=== PATIENT | male | born 1970 | race Caucasian/White ===

== ENCOUNTER 2017-05-28 09:23 | Emergency (ER) | payer OTHER ==
[~2017-05-28] VITALS: Ht 190.5 cm; Wt 95.2 kg
[2017-05-28] MEDS ORDERED: IBUPROFEN200 M1 PO (09:42)
[2017-05-28] MEDS ORDERED: VENTOLIN HFA18 GM INH (11:10)
== END 2017-05-28 11:28 | disposition home or self-care (01) ==
LOC: ED 09:23
DX: J44.9 Chronic obstructive pulmonary disease, unspecified (principal); F17.210 Nicotine dependence, cigarettes, uncomplicated
CPT/HCPCS: 71046; 80053; 83690; 85025; 94640; 99284; G0480

== ENCOUNTER → 2020-05-12 | Emergency (ER) | payer BC ==
[~2020-05-12] VITALS: Ht 190.5 cm; Wt 87.5 kg
[~2020-05-12] MED LIST: IBUPROFEN200 M1 PO; VENTOLIN HFA18 GM INH
--- NOTE | 2020-05-13 15:40 | EKG ---
[facility] [address] [facility] [place], [place] [address] Signed Sinus tachycardia Low voltage QRS Borderline ECG No previous ECGs available Confirmed by NICKOLAS BAKER DO ([id number]) on 05/13/2020 3:39:51 PM Electronically Signed By: NICKOLAS BAKER DO 05/13/20 1540 PATIENT NAME: NETTE NICHOLAS Electrocardiogram DATE OF : 66 PHYSICIAN: NICKOLAS BAKER DO REPORT #: [id number] REPORT IS CONFIDENTIAL AND NOT TO BE RELEASED WITHOUT AUTHORIZATION
== END ==
LOC: ED 17:19
DX: A41.9 Sepsis, unspecified organism (principal); R91.1 Solitary pulmonary nodule; E87.1 Hypo-osmolality and hyponatremia; D72.829 Elevated white blood cell count, unspecified; J43.9 Emphysema, unspecified; F17.200 Nicotine dependence, unspecified, uncomplicated; Z20.822 Contact with and (suspected) exposure to COVID-19
CPT/HCPCS: 71045; 71260; 74177; 80053; 81001; 83605; 85025; 93005; 93010; 99285-25; C9803; J0295; Q9967; U0003

== ENCOUNTER 2021-07-19 07:34 | Emergency (ER) | payer OTHER ==
[~2021-07-19] VITALS: Ht 190.5 cm; Wt 104.3 kg
[2021-07-19] MEDS ORDERED: INCRUSE ELLI62.5 MCG IH (07:44)
== END 2021-07-19 09:55 | disposition home or self-care (01) ==
LOC: ED 07:34
DX: M54.6 Pain in thoracic spine (principal); R53.1 Weakness; J43.9 Emphysema, unspecified; F17.200 Nicotine dependence, unspecified, uncomplicated; Z79.51 Long term (current) use of inhaled steroids; Z20.822 Contact with and (suspected) exposure to COVID-19
CPT/HCPCS: 36415; 71046; 74177; 80053; 85025; 87502; 99285-25; C9803; Q9967; U0003

== ENCOUNTER 2022-03-27 05:35 | Day surgery (SDC) | payer OTHER ==
[~2022-03-27] VITALS: Ht 190.5 cm; Wt 109.5 kg
[~2022-03-27 05:35] MED LIST changes: +INCRUSE ELLI62.5 MCG IH; +PEPCID20 MG PO
--- NOTE | 2022-03-27 08:55 | NUR ---
03/27/22 0855 Sheets,Nupur 0833 PT ARRIVED TO PACU ON 10L VIA MASK WITH ORAL AIRWAY IN PLACE. PT LAYING ON SIDE. HOB INCREASED AND JAW THUSRT USED TO MAINTAIN AIRWAY. PT NONAROUSABLE TO PAINFUL STIMULI. 0836 O2 DECREASED TO 6L. 0837 PT STARTS COUGHING AND RED/BROWN DRAINAGE NOTED, SUCTION USED. ORAL AIRWAY REMOVED AND PT EYES REMAIN CLOSED AND PT DOES NOT FOLLOW COMMANDS. PT ROLLED MORE ON HIS SIDE. 0839 PT EYES OPEN AND PT REORIENTED TO PACU. PT CONTINUES COUGHING AND SUCTION USED. RESP EVEN AND UNLABORED. PT PASSIING GAS/AIR. 0840 PT SITTING UP IN BED AND REQUESTING WATER. 0848 MD AT BEDSIDE TALKING TO PT, PT SIPPING WAER AND DENIES CONCERNS.
--- NOTE | 2022-03-27 10:56 | OR ---
[facility] [address] [place], [place] [address] Signed DATE OF OPERATION: 03/27/2022 SURGEON: Babak Martinez MD PREOPERATIVE DIAGNOSES: 1. Gastroesophageal reflux disease. 2. Mother with colon cancer in her late 80s. 3. Father with colon cancer age 77. 4. Personal history of colonic polyps in 2012 at age 41. 5. Diverticulosis. 6. External hemorrhoids. POSTOPERATIVE DIAGNOSES: 1. Mild gastroduodenitis. 2. Hiatal hernia (39-35 cm). 3. GE junction at 35 cm. 4. 7 mm polyp at 7 cm in the rectum. 5. 5 mm polyp at 50 cm in left colon. 6. 7 mm polyp at 45 cm in left colon. 7. Internal hemorrhoids. 8. Minimal external hemorrhoids. 9. Indurated prostate gland. PROCEDURES: 1. EGD with CLOtest and biopsies of the pyloric bulb, antrum and GE junction. 2. Colonoscopy with hot biopsy. ESTIMATED BLOOD LOSS: None. INDICATIONS: Nette is a 51-year-old gentleman, asked to see me for both upper and lower endoscopy. He has developed acid reflux and it has been really bother him while lying supine at night. He was going through large amounts of Tums. He started taking Pepcid before he goes to bed and he said that has really helped a lot. He said the acid is no longer coming up in his mouth. In addition, he has a personal history of colonic polyps. He also has diverticulosis and external hemorrhoids. We know his mom and dad both had colon cancer. I helped him with his initial colonoscopy at age 41 back in 2011. 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 He has quit smoking cigarettes and drinking beer, although, he has continued to use marijuana on a nightly Electronically Signed By: BABAK MARTINEZ MD 03/27/22 1056 PATIENT NAME: NETTE NICHOLAS OPERATIVE REPORT DATE OF : 66 REPORT #: [id number] PHYSICIAN: BABAK MARTINEZ MD PCP: ZENAIDA HUERTA MD REPORT IS CONFIDENTIAL AND NOT TO BE RELEASED WITHOUT AUTHORIZATION [facility] [address] [place], [place] [address] Signed basis to help him sleep. In the office, I gave him a pamphlet on upper and lower endoscopy. We reviewed the nature of the two tests. There is risk including, but not limited to gas bloating, crampy abdominal pain, bleeding, perforation requiring surgery, and missed diagnosis. Given his past medical history, he is in need of monitored anesthesia care with propofol infusion. He had expressed understanding and wished to proceed. PROCEDURE NOTE: Didier was taken into our endoscopy suite and placed in a supine semi-recumbent position. A bite block was utilized . He was given monitored anesthesia care with propofol per our nurse general road production manager. The adult gastroscope was introduced and advanced under direct visualization of the camera into the third portion the duodenum. As it is common with marijuana smokers, he had lots of phlegm and saliva throughout the case and required constant suctioning. He had just a little irritation in his pyloric bulb and his stomach. We went ahead and took biopsies from the pyloric bulb in the antrum for pathologic review. In addition, biopsy came out of the antrum for CLOtest. Upon retroflexion of the scope, we can see he has moderate-sized hiatal hernia. It measured from 39 back to 35 cm. He has a little bit of disruption along the Z-line. There was no Lerner's mucosa. There were no gastric or esophageal varices. There was no stricture. We went ahead and took a biopsy along the edge of the GE junction. There was no distal esophagitis. The middle and upper esophagus were unremarkable. After this, the gas was suctioned out and the gastroscope removed. Didier tolerated the procedure quite well except for all the phlegm. Didier was rotated into the left lateral decubitus position. He was maintained on IV sedation with the propofol. A digital rectal exam was performed. He has very small external hemorrhoids. He has good sphincter tone. He has a fairly prominent prostate gland given his age. There were no masses. The adult colonoscope was introduced and we took out the polyp in his mid rectum with hot biopsy forceps. It took us quite some time to get around his rectosigmoid junction. We had to rotate him into the supine position and used abdominal compression and eventually got through that area and up to the sigmoid colon quite nicely. We went around into the cecum. His prep was quite excellent. We could easily see the appendiceal orifice and the ileocecal valve. The scope was then slowly withdrawn. We took pictures throughout for photodocumentation. We placed him back into the left lateral decubitus position. He had the two polyps in the left colon removed with a hot biopsy forceps. The polyp at 45 cm is in between two folds and it was a bit challenging. He does have left and sigmoid diverticula. They are moderate in size, moderate in number, and scattered about. Again, we came back through his tortuous rectosigmoid junction. We retroflexed the scope in his rectum. He does have moderate internal hemorrhoid columns. After this, the gas was suctioned out and the colonoscope removed. Didier tolerated the procedure quite well. Electronically Signed By: BABAK MARTINEZ MD 03/27/22 1056 PATIENT NAME: NETTE NICHOLAS OPERATIVE REPORT DATE OF : 66 REPORT #: [id number] PHYSICIAN: BABAK MARTINEZ MD PCP: ZENAIDA HUERTA MD REPORT IS CONFIDENTIAL AND NOT TO BE RELEASED WITHOUT AUTHORIZATION [facility] [address] [place], [place] [address] Signed RECOMMENDATIONS: Didier can follow up my office in 7 to 14 days to review his results. I suspect he will be on the 5-year rotation. He should be encouraged to stop smoking marijuana. MD GURWINDER Hawthorne/POLAL /[id number] cc: MD Babak Brannon MD Copies: BABAK MARTINEZ MD ~ Electronically Signed By: BABAK MARTINEZ MD 03/27/22 1056 PATIENT NAME: NETTE NICHOLAS OPERATIVE REPORT DATE OF : 66 REPORT #: [id number] PHYSICIAN: BABAK MARTINEZ MD PCP: ZENAIDA HUERTA MD REPORT IS CONFIDENTIAL AND NOT TO BE RELEASED WITHOUT AUTHORIZATION
--- NOTE | 2022-03-31 16:03 | PATH ---
[facility] [address] [place], [place] [address] Signed SPECIMEN(S): A PYLORIC BULB BIOPSY SPECIMEN(S): B ANTRUM BIOPSY SPECIMEN(S): C GE JUNCTION BIOPSY SPECIMEN(S): D RECTAL POLYPS AT 7CM SPECIMEN(S): E DESCENDING/LEFT COLON POLYPS AT 50CM SPECIMEN(S): F DESCENDING/LEFT COLON POLYPS AT 45CM SPECIMEN SOURCE: A. PYLORIC BULB BIOPSY B. ANTRUM BIOPSY C. GE JUNCTION BIOPSY D. RECTAL POLYPS AT 7CM E. DESCENDING/LEFT COLON POLYPS AT 50CM F. DESCENDING/LEFT COLON POLYPS AT 45CM CLINICAL HISTORY: History of polyps, acid reflux, family history of colon cancer. Postop: Gastroduodenitis, hiatal hernia. Lower postop: Internal hemorrhoids, polyps, diverticulosis. FINAL PATHOLOGIC DIAGNOSIS: A. Pyloric bulb, biopsies: - Reactive small intestinal mucosa, negative for significantly increased intraepithelial lymphocytosis and villous blunting. B. Antrum, biopsies: - Fragments of benign antral type gastric mucosa. - Negative for intestinal metaplasia. - Negative for Helicobacter pylori organisms on routine stain. C. GE junction, biopsies: - Fragments of reactive squamocolumnar mucosa. - Negative for intestinal metaplasia and dysplasia. D. Rectal polyps at 7 cm, polypectomy: - Fragments of tubular adenoma with abundant cautery artifact. - Negative for high-grade dysplasia and malignancy. E. Descending/left colon polyp at 50 cm, polypectomy: - Fragments of tubular adenoma. - Negative for high-grade dysplasia and malignancy. F. Descending/left colon polyp at 45 cm, polypectomy: - Fragments of tubular adenoma. - Negative for high-grade dysplasia and malignancy. DF:cml:[id number] PATIENT NAME: NETTE CORTEZ PATHOLOGY DATE OF : 66 REPORT #: [id number] PHYSICIAN: NAVA PATHOLOGY PCP: ZENAIDA HUERTA MD REPORT IS CONFIDENTIAL AND NOT TO BE RELEASED WITHOUT AUTHORIZATION [facility] [address] [place], [place] [address] Signed MICROSCOPIC EXAMINATION: Histologic sections of all submitted blocks are examined by light microscopy. These findings, together with the gross examination, support the pathologic diagnosis. GROSS DESCRIPTION: A. The specimen, labeled and designated "Dana, pyloric bulb biopsy," is received in formalin and consists of one carrasco soft tissue fragment, 0.2 cm. Entirely submitted in (A1). B. The specimen, labeled and designated "Cortez, antrum biopsy," is received in formalin and consists of one carrasco soft tissue fragment, 0.8 cm. Entirely submitted in (B1). C. The specimen, labeled and designated "Cortez, GE junction biopsy," is received in formalin and consists of one carrasco soft tissue fragment, 0.2 cm. Entirely submitted in (C1). D. The specimen, labeled and designated "Cortez, rectal polyps at 7 cm," is received in formalin and consists of two carrasco soft tissue fragments, ranging from 0.3-0.4 cm. Entirely submitted in (D1). E. The specimen, labeled and designated "Cortez, descending/left colon polyp at 50 cm," is received in formalin and consists of two carrasco soft tissue fragments, ranging from 0.3-0.4 cm. Entirely submitted in (E1). F. The specimen, labeled and designated "Cortez, descending/left colon polyp at 45 cm," is received in formalin and consists of six carrasco soft tissue fragments, ranging from 0.1-0.2 cm. Entirely submitted in (F1). VB (under the direct supervision of a pathologist) The Gross Description was prepared using a voice recognition system. The report was reviewed for accuracy; however, sound-alike word errors, addition and/or deletions may occur. If there is any question about this report, please contact Client Services. PERFORMING LABORATORY: The technical component was performed by [employer], [address] [place] [id number] (CLIA# [id number]). Professional interpretation was performed by [employer], [facility], [address] [place] [id number] (CLIA#: [id number]) Diagnostician: Martir España DO PATIENT NAME: NETTE CORTEZ PATHOLOGY DATE OF : 66 REPORT #: [id number] PHYSICIAN: NAVA PATHOLOGY PCP: ZENAIDA HUERTA MD REPORT IS CONFIDENTIAL AND NOT TO BE RELEASED WITHOUT AUTHORIZATION [facility] [address] [place], [place] [address] Signed Pathologist Electronically Signed 03/31/2022 Copies: ~ PATIENT NAME: NETTE CORTEZ PATHOLOGY DATE OF : 66 REPORT #: [id number] PHYSICIAN: NAVA PATHOLOGY PCP: ZENAIDA HUERTA MD REPORT IS CONFIDENTIAL AND NOT TO BE RELEASED WITHOUT AUTHORIZATION
== END 2022-03-27 09:11 | disposition home or self-care (01) ==
LOC: OPS 05:35 → DS 05:35 → OPS 07:30
PROVIDERS: ATTEND Colon & Rectal Surgery
PROC: 0DBP8ZX Excision of Rectum, Via Natural or Artificial Opening Endoscopic, Diagnostic (ICD-10-PCS; 2022-03-27)
PROC: 0DB68ZX Excision of Stomach, Via Natural or Artificial Opening Endoscopic, Diagnostic (ICD-10-PCS; principal; 2022-03-27 07:30)
PROC: 0DBM8ZX Excision of Descending Colon, Via Natural or Artificial Opening Endoscopic, Diagnostic (ICD-10-PCS; 2022-03-27 07:30)
DX: D12.8 Benign neoplasm of rectum (principal); K29.90 Gastroduodenitis, unspecified, without bleeding; Z80.0 Family history of malignant neoplasm of digestive organs; K57.30 Diverticulosis of large intestine without perforation or abscess without bleeding; Z86.010 Personal history of colon polyps; K64.4 Residual hemorrhoidal skin tags; K44.9 Diaphragmatic hernia without obstruction or gangrene; F41.9 Anxiety disorder, unspecified; Z87.891 Personal history of nicotine dependence; J43.9 Emphysema, unspecified; K21.9 Gastro-esophageal reflux disease without esophagitis; M81.0 Age-related osteoporosis without current pathological fracture; D12.4 Benign neoplasm of descending colon
CPT/HCPCS: 36415; 87077; J2704; J7121